=== PATIENT | male | born 1955 | race Caucasian/White ===

== ENCOUNTER 2016-07-06 09:24 | Emergency (ER) | payer OTHER ==
[~2016-07-06] VITALS: Ht 188 cm; Wt 101.1 kg
[2016-07-06 10:26] LABS: HEMATOCRIT 49.6 % (38.0-50.0); MCH 30.9 PG (29.0-34.0); MCHC 34.7 G/DL (30.0-36.0); MCV 89.2 FL (86-99); MEAN PLAT.VOLUME 9.4 uM^3 (9.0-12.4); PLATELET COUNT 264 K/uL (156-360); RBC DIS.WIDTH-CV 12.4 % (11.8-14.6); RBC DIS.WIDTH-SD 40.9 % (39-53); RED BLOOD COUNT 5.56 M/uL (4.00-5.50); WHITE BLOOD COUNT 7.8 K/uL (4.1-10.2)
[2016-07-06 10:37] LABS: CHLORIDE 103 mEq/L (99-109); SODIUM 138 mEq/L (136-147)
[2016-07-06 10:39] LABS: GLUCOSE 112 mg/dL (70-99)
[2016-07-06 10:40] LABS: ANION GAP 11 MEQ/L (2-14)
[2016-07-06 10:42] LABS: GFR ESTIMATE (CALCULATED) > 59 mL/min/
[2016-07-06 10:43] LABS: UREA NITROGEN (BUN) 17 mg/dL (9-23)
[2016-07-06 12:12] LABS: ADD MIUA? YES; BILIRUBIN NEGATIVE; BLOOD MODERATE; COLOR YELLOW ((YELLOW)); GLUCOSE (STRIP) NEGATIVE; KETONES 20; LEUKOCYTES NEGATIVE; NITRITE NEGATIVE; PROTEIN (STRIP) 30; SPECIFIC GRAVITY 1.027 (1.000-1.030); UROBILINOGEN 0.2 MG/DL (0.2-1.0)
[2016-07-06 12:28] LABS: BACTERIA RARE /HPF; CALCIUM OXALATE CRYSTALS 2+ /HPF; EPITHELIAL CELLS RARE /HPF; MUCUS TRACE /LPF; UCUL ADDED? NO; WHITE BLOOD CELLS 0-5 /HPF (0-5)
[2016-07-06] MEDS ORDERED: FLEXERIL10 MG PO (13:34)
[2016-07-06] MEDS ORDERED: TORADOL10 MG PO (13:34)
[2016-07-06 13:45] VITALS: BP 131/84
== END 2016-07-06 13:56 | disposition home or self-care (01) ==
LOC: EME 09:24
DX: M25.551 Pain in right hip (principal); R31.9 Hematuria, unspecified; I10 Essential (primary) hypertension; Z87.442 Personal history of urinary calculi
CPT/HCPCS: 73502; 80048; 81003; 85027; 99281; 99284; J1100